=== PATIENT | male | born 1950 | race Caucasian/White ===

== ENCOUNTER 2021-03-26 09:59 | Day surgery (SDC) | payer MEDICARE, BC ==
[~2021-03-26 09:59] MED LIST: Lactated Ringers 1,000 ML IV SCH
[2021-03-26] MEDS ORDERED: fentaNYL 100 MCG/2 ML SDV ONE (11:16)
[2021-03-26] MEDS ORDERED: Midazolam 1 MG/ML 2 ML SDV ONE (11:16)
[2021-03-26] MEDS ORDERED: Propofol 200 MG/20 ML SDV ONE (11:16)
[2021-03-26 12:04] VITALS: BP 168/79; PULSE 51
--- NOTE | 2021-03-27 07:53 | OR ---
PREOPERATIVE DIAGNOSIS: History of colon polyps. POSTOPERATIVE DIAGNOSIS: History of colon polyps. PROCEDURE PERFORMED: Colonoscopy. COMPLICATIONS: None. SPECIMENS: None. PROCEDURE IN DETAIL: This was done in the endoscopy suite. Sedation was given per Anesthesia. He was placed in left lateral position. First, a rectal exam was done and was normal. Scope was then introduced into the rectum and slowly advanced to the rectum, sigmoid, descending, transverse, and ascending colon until the cecum was reached. Upon reaching the cecum, scope was slowly withdrawn looking at all mucosal surfaces on the way out. No mucosal abnormalities, lesions, or polyps were noted. FINAL DIAGNOSIS: Normal colonoscopy. BKD: 03/26/2021 11:43:41 MODL: 03/26/2021 17:06:13 /[id number]
== END 2021-03-26 13:20 | disposition home or self-care (01) ==
LOC: VM.SDS 09:59
PROVIDERS: ATTEND Surgery
DX: Z12.11 Encounter for screening for malignant neoplasm of colon (principal); E78.5 Hyperlipidemia, unspecified; I10 Essential (primary) hypertension; Z86.010 Personal history of colon polyps; Z20.822 Contact with and (suspected) exposure to COVID-19; Z98.890 Other specified postprocedural states; Z79.899 Other long term (current) drug therapy; Z87.891 Personal history of nicotine dependence
CPT/HCPCS: 00811; J2250; J2704; J3010; J7120; U0002